=== PATIENT | female | born 1965 | race Caucasian/White ===

== ENCOUNTER 2025-06-11 17:37 | Emergency (ER) | payer BC, SELFPAY ==
[2025-06-11 17:40] VITALS: BP 159/99; PULSE 69; RESP 18; O2SAT 97
--- OUTSIDE RECORDS SUMMARY | 2025-06-11 17:44 | XMS_ITS | Encounter Summary ---
Author Organization [facility] Address [address] [place] [address] Care Team Providers Care Surveillance Director Name Role Phone Janessa Dent MD Primary Care Provider +1- [phone] Encounter Details Date Type Department Care Team (Late st Contact Info) Description 05/11/2025 Results Follow-Up [facility] Primary Care Ezequ[place] Silverio [address] [address] [place] [address] [facility] [address] [place] [address] [address] CORONARY CALCIUM SCORE Social History Tobacco Use Types Packs/Day Years Used Date Smoking Tobacco: Never Passive Smoke Exposure: Never Smokeless Tobacco: Never Alcohol Use Standard Drinks/Week Comments Yes 1 (1 standard drink = 0.6 oz pur e alcohol) Comments No Sex and Gender Information Value Date Recorded Sex Assigned at Not on file Legal Sex Female 2:40 PM CDT Gender Identity Not on file Sexual Orientation Not on file documented as of this encounter Plan of Treatment Upcoming Encounters Date Type Department Care Team (Latest Contact Info) Description 06/30/2025 7:00 AM CDT Hospital Encounter [facility] [address] [place] [address] Jerald Shelton MD [address] [place] [address] Screen for colon cancer 06/30/2025 7:00 AM CDT - 06/30/2025 7:30 AM CDT Surgery [facility] [address] [place] [phone] Jerald Shelton MD [address] [place] [address] COLONOSCOPY Scheduled Procedures Name Priority Associated Diagnoses Date/Ti me COLONOSCOPY Screen for colon cancer History of colon cancer 06/30/2025 7:00 AM CDT documented as of this encounter Goals Goal Patient Goal Type Associated Problems Recent Progress Patient-Stated? Author Autogenera mariangel Goal Care Plan Autogenerated Problem No Marisela Vargas, CHAINSTITCH SEAT JOINER documented as of this encounter Visit Diagnoses Not on filedocumented in this encounter Additional Health Concerns Active Problems Noted Date Diagnosed Date Autogenerated Problem 04/18/2025 documented as of this encounter Care Teams Surveillance Director Relationship Specialty Start Date End Date Janessa Dent MD PCP - General Internal Medicine 04/11/15 documented as of this encounter
--- OUTSIDE RECORDS SUMMARY | 2025-06-11 17:44 | XMS_ITS | Encounter Summary ---
Author Organization [facility] Address [address] [place] [address] Care Team Providers Care Waiter/Waitress Counter Name Role Phone Janessa Dent MD Primary Care Provider +1- [phone] Reason for Visit * Reason Onset Date Comments Urinary Pain 06/06/2022 Encounter Details Date Type Department Care Team (Late st Contact Info) Description 06/06/2022 Telephone [facility] Internal Medicine [address] [address] [place] [id number] [place] [address] Urinary Pain Social History Tobacco Use Types Packs/Day Years Used Date Smoking Tobacco: Never Smokeless Tobacco: Never Alcohol Use Standard Drinks/Week Comments Yes 1 (1 standard drink = 0.6 oz pur e alcohol) Comments No Sex and Gender Information Value Date Recorded Sex Assigned at Not on file Legal Sex Female 2:40 PM CDT Gender Identity Not on file Sexual Orientation Not on file documented as of this encounter Miscellaneous Notes * Telephone Encounter - Janessa Dent MD - 06/06/2022 10:36 AM CDT Keflex sent to pharmacy * Telephone Encounter - Anthony Feliciano - 06/06/2022 9:38 AM CDT Urinary Problem or recent delivery / surgery / ? No Painful or difficulty urinating? Yes. Blood in urine? No Urinary frequency? Yes Urgency? Yes Lower back or Flank pain? No Fever: Temp 99-100.9 Chills: No Abnormal vaginal discharge or bleeding: No Nausea, vomiting, diarrhea? Yes History of recurrent urinary tract infections? Yes Date of Last UTI: 05/10 Medication used? sulfamethoxazole/trimethoprim Not able to schedule appointment within the recommended timeframe. Caller has been advised that their Primary Care team will be contacting them regarding their clinical concern. Caller also advised to call back: in 48 hours if they have not received contact at any time if the condition worsens or they develop new symptoms they are concerned about.UTI documented in this encounter Plan of Treatment Upcoming Encounters Date Type Department Care Team (Latest Contact Info) Description 06/30/2025 7:00 AM CDT Hospital Encounter [facility] [address] [place] [address] Jerald Shelton MD [address] [place] [address] Screen for colon cancer 06/30/2025 7:00 AM CDT - 06/30/2025 7:30 AM CDT Surgery [facility] [address] [place] [address] Jerald Shelton MD [address] [place] [phone] COLONOSCOPY Scheduled Procedures Name Priority Associated Diagnoses Date/Ti me COLONOSCOPY Screen for colon cancer History of colon cancer 06/30/2025 7:00 AM CDT documented as of this encounter Visit Diagnoses Not on filedocumented in this encounter Care Teams Waiter/Waitress Counter Relationship Specialty Start Date End Date Janessa Dent MD PCP - General Internal Medicine 04/11/15 documented as of this encounter
--- OUTSIDE RECORDS SUMMARY | 2025-06-11 17:44 | XMS_ITS | Clinical Summary ---
Author Organization [facility] Address [address] [place] [address] Phone Care Team Providers Care Missionary Coordinator Name Role Phone Janessa Dent MD Primary Care Provider +1- [phone] Allergies Active Allergy Reactions Criticality Noted Date Comments Adhesive Tape-Silicones Other (See Comments) blisters Morphine Hives High 01/22/2019 Medications multivitamin (DAILY-NUZHAT) tablet Take 1 Tablet by mouth daily. Active ibuprofen (MOTRIN) 800 mg tablet Take 1 Tablet (800 mg) by mouth every 8 hours as needed for Pain, Mild. 30 Tablet 1 7 Active naproxen (NAPROSYN) 500 mg tablet Take 1 Tablet (500 mg) by mouth every 12 hours as needed for Pain, Moderate. 20 Tablet 9 Active sulfamethoxazo le-trimethopri m (BACTRIM DS) 800-160 mg tabletIndicati ons:Acute cystitis without hematuria Take 1 Tablet by mouth 2 times daily. 14 Tablet 5 Active peg 3350-electroly calvin (COLYTE) 240-22.72-6.72 -5.84 gram solution Take 4,000 mL by mouth one time only for 1 dose. Follow prescribing physician's instructions ONLY. These were sent by mail or email. 4000 mL 5 06/08/20 25 Active Problems Problem Noted Date Diagnosed Date Hyperlipidemia 02/10/2019 History of recurrent UTIs 04/11/2015 Encounters Date Type Department Care Team Description 05/11/2025 Results Follow-Up [facility] Care [place] Silverio [address] [facility] [address] [place] [phone] CORONARY CALCIUM SCORE 05/10/2025 4:09 PM CDT - 05/10/2025 11:59 PM CDT Hospital Encounter [facility] Imaging Services [address] [place] [phone] Estefania Romeo NP Discharge Disposition: Home or Self Care 04/05/2025 External Device Data STL ABSTRACTION Provider, Abstract from Last 3 Months Immunizations Immunization Administration Dates Next Due (SHINGRIX)(50 YRS UP) ZOSTER VACCINE RECOMBINANT, 0.5 ML, IM 04/04/2021 Family History Medical History Relation Name Comments Cancer Father kidney Heart Disease Father High Cholesterol Father Colon Cancer Maternal Grandfather Diabetes Mother Heart Disease Mother High Cholesterol Mother Colon Cancer Paternal Grandmother Breast Cancer Neg Hx Relation Name Status Comments Father Maternal Grandfather Mother Paternal Grandmother Social History Tobacco Use Types Packs/Day Years Used Date Smoking Tobacco: Never Passive Smoke Exposure: Never Smokeless Tobacco: Never Tobacco Cessation:Counseling Given: Not Answered Alcohol Use Standard Drinks/Week Comments Yes 1 (1 standard drink = 0.6 oz pur e alcohol) occ Comments No Sex and Gender Information Value Date Recorded Sex Assigned at Not on file Legal Sex Female 2:40 PM CDT Gender Identity Not on file Sexual Orientation Not on file Last Filed Vital Signs Vital Sign Reading Time Taken Comments Blood Pressure 110/70 01/26/2025 1:38 PM CDT Pulse 76 01/26/2025 1:38 PM CDT Temperature 36.9 C (98.5 F) 11/14/2024 2:14 PM CDT Respiratory Rate 16 11/14/2024 2:14 PM CDT Oxygen Saturation 97% 01/26/2025 1:38 PM CDT Inhaled Oxygen Concentration - - Weight 72.6 kg (160 lb) 06/08/2025 10:26 AM CDT Height 170.2 cm (5' 7 ) 06/08/2025 10:26 AM CDT Body Mass Index 25.06 06/08/2025 10:26 AM CDT Plan of Treatment Upcoming Encounters Date Type Department Care Team (Latest Contact Info) Description 06/30/2025 7:00 AM CDT Hospital Encounter [facility] [address] [place] [phone] Jerald Shelton MD [address] [place] [address] Screen for colon cancer 06/30/2025 7:00 AM CDT - 06/30/2025 7:30 AM CDT Surgery [facility] [address] [place] [phone] Jerald Shelton MD [address] [place] [address] COLONOSCOPY Scheduled Procedures Name Priority Associated Diagnoses Date/Ti me COLONOSCOPY Screen for colon cancer History of colon cancer 06/30/2025 7:00 AM CDT Health Maintenance Due Date Last Done Comments Pre-Diabetes and Diabetes Screening 1965 DTAP/TDAP/TD VACCINES (1 - Tdap) 12/10/1982 HPV/Cotest (21-29) 12/10/1984 CERVICAL CANCER SCREENING 12/10/1993 HPV/Cotest (30-65) 12/10/1993 PAP SMEAR 12/10/1993 FIT-DNA Q 3 years 12/10/2008 FIT/FOBT Q 1 year 12/10/2008 Flex Sig/CT Colonography Q 5 years 12/10/2008 ZOSTER VACCINE (2 of 2) 05/30/2021 04/04/2021 Preventative Visit- Commercial 09/01/2024 0 02/10/2019, 12/22/2017, 04/11/2015 INFLUENZA VACCINE (#1) 2025 COLORECTAL SCREENING 06/30/2025 06/30/2015 Colorectal Cancer Screening 06/30/2025 BREAST CANCER SCREENING 07/14/2025 07/14/20 24, 08/16/2022, 02/23/2019, Additional history exists RSV VACCINE (60+ or ) (1 - 1-dose 75+ series) 12/10/2038 Goals Goal Patient Goal Type Associated Problems Recent Progress Patient-Stated? Author Nelson august Goal Care Plan Autogenerated Problem No SamMarisela powell, BUSINESS MAIL ENTRY CLERK Procedures Procedure Name Priority Date/Time Associated Diagnosis Comments CT CORONARY CALCIUM SCORE Routine 05/10/2025 4:31 PM CDT Hyperlipidemia, unspecified hyperlipidemia type MAMMO 3D ASMITA SCREEN IMPL BILAT W OR WO CAD Routine 07/14/2024 1:23 PM ACTUARIAL SCIENCE PROFESSOR Screening mammogram for breast cancer from Last 3 Months or Most Recently Relevant to Health Maintenance Results * CT CORONARY CALCIUM SCORE (05/10/2025 4:31 PM CDT) 05/10/2025 4:31 PM CDT Addenda Addendum by Vincent Khan MD on 05/11/2025 7:59 AM CDT The LAD score is 18. Impressions INTERFACE SYSTEM - 05/10/2025 4:38 PM CDT IMPRESSION: 1. Calcium score: 18, consistent with a mildly increased risk for future cardiac events. DICTATION LOCATION: [address] Narrative INTERFACE SYSTEM - 05/10/2025 4:38 PM CDT EXAMINATION: CT CARDIAC SCORING - Coronary Artery Calcium (CAC) Score DATE: 05/10/2025 4:31 PM HISTORY: Atherosclerotic cardiovascular disease (ASCVD) risk stratification COMPARISON: No prior study is available for comparison at the time of this dictation. PROCEDURE: A standard prospective cardiac-gated CAC scoring protocol. CAC scan was interpreted using the Agatston's Scoring formula. An age/sex/race-adjusted score percentile was derived by comparison of the score with Multi-Ethnic Study of Atherosclerosis (CARLSON) reference population. The examination was performed with the adjustment of mA according to the patient size and/or the use of Iterative Reconstruction Technique. FINDINGS: Great vessels (diameter): Ascending aorta: 3.7 cm Descending aorta: 2.4 cm Main pulmonary artery: 2.2 cm Pericardium: Normal. Extra-coronary calcification: Aortic valve: Minimal calcification. Thoracic aorta: No calcification. Mitral annulus: No calcification. Other findings: None. Total Agatston CAC Score: 18 Left main: 0 LAD: 0 LCx: 0 RCA/PDA: 0 CAC-DRS Category: A1/N1 A = Agatston scoring; N = Number of vessels The regional distribution/total CACS does not warrant further evaluation. CAC-DRS: Coronary Artery Calcium Data and Reporting System. An expert consensus Document of the Society of Cardiovascular Computed Tomography (SCCT). J Cardiovasc Comp Asael; 12 (2018):185-191. Score: 0 Agatston's Score: 0 Plaque burden: No identifiable atherosclerotic plaque. Risk: Very low. Probability of significant CAD: Very unlikely. Score: 1 Agatston's Score: 1-99 Plaque burden: Mild identifiable plaque. Risk: Mildly increased. Probability of significant CAD: Mild or minimal coronary stenosis likely. Score: 2 Agatston's Score: 100-299 Plaque burden: Moderate identifiable plaque. Risk: Moderately increased. Probability of significant CAD: Moderate likelihood of significant stenosis. Score: 3 Agatston's Score: > 300 Plaque burden: Extensive plaque burden. Risk: Severely increased Probability of significant CAD: High likelihood. Procedure Note Vincent Khan MD - 05/10/2025 EXAMINATION: CT CARDIAC SCORING - Coronary Artery Calcium (CAC) Score DATE: 05/10/2025 4:31 PM HISTORY: Atherosclerotic cardiovascular disease (ASCVD) risk stratification COMPARISON: No prior study is available for comparison at the time of this dictation. PROCEDURE: A standard prospective cardiac-gated CAC scoring protocol. CAC scan was interpreted using the Agatston's Scoring formula. An age/sex/race-adjusted score percentile was derived by comparison of the score with Multi-Ethnic Study of Atherosclerosis (CARLSON) reference population. The examination was performed with the adjustment of mA according to the patient size and/or the use of Iterative Reconstruction Technique. FINDINGS: Great vessels (diameter): Ascending aorta: 3.7 cm Descending aorta: 2.4 cm Main pulmonary artery: 2.2 cm Pericardium: Normal. Extra-coronary calcification: Aortic valve: Minimal calcification. Thoracic aorta: No calcification. Mitral annulus: No calcification. Other findings: None. Total Agatston CAC Score: 18 Left main: 0 LAD: 0 LCx: 0 RCA/PDA: 0 CAC-DRS Category: A1/N1 A = Agatston scoring; N = Number of vessels The regional distribution/total CACS does not warrant further evaluation. CAC-DRS: Coronary Artery Calcium Data and Reporting System. An expert consensus Document of the Society of Cardiovascular Computed Tomography (SCCT). J Cardiovasc Comp Asael; 12 (2018):185-191. Score: 0 Agatston's Score: 0 Plaque burden: No identifiable atherosclerotic plaque. Risk: Very low. Probability of significant CAD: Very unlikely. Score: 1 Agatston's Score: 1-99 Plaque burden: Mild identifiable plaque. Risk: Mildly increased. Probability of significant CAD: Mild or minimal coronary stenosis likely. Score: 2 Agatston's Score: 100-299 Plaque burden: Moderate identifiable plaque. Risk: Moderately increased. Probability of significant CAD: Moderate likelihood of significant stenosis. Score: 3 Agatston's Score: > 300 Plaque burden: Extensive plaque burden. Risk: Severely increased Probability of significant CAD: High likelihood. IMPRESSION: 1. Calcium score: 18, consistent with a mildly increased risk for future cardiac events. DICTATION LOCATION: [address] [place] Estefania Romeo NP CT ORDERABLES Edited Result - Final INTERFACE SYSTEM Refer to clinic/hospital department * MAMMO 3D ASMITA SCREEN IMPL BILAT W OR WO CAD (07/14/2024 1:23 PM ACTUARIAL SCIENCE PROFESSOR) Anatomical Region Laterality Modality Breast Bilateral Mammography 07/14/2024 1:23 PM ACTUARIAL SCIENCE PROFESSOR Impressions 07/14/2024 2:55 PM ACTUARIAL SCIENCE PROFESSOR IMPRESSION: No suspicious findings to suggest malignancy in either breast. Annual mammography is recommended. OVERALL FINAL ASSESSMENT: BI-RADS CATEGORY 1 - Negative. DICTATION LOCATION: [facility] Narrative 07/14/2024 2:55 PM ACTUARIAL SCIENCE PROFESSOR BILATERAL SCREENING DIGITAL IMPLANT MAMMOGRAM WITH 3D TOMOSYNTHESIS AND CAD DATE: 07/14/2024 1:23 PM HISTORY: Routine screening. TECHNIQUE: Full-field digital standard and implant displaced craniocaudal and mediolateral oblique projections of both breasts were obtained. Low-dose full-field digital breast tomosynthesis examination was performed with 2D and 3D acquisitions. Examination is read in conjunction with computer aided detection. COMPARISON: 2021 and older BREAST COMPOSITION: There are scattered areas of fibroglandular density. FINDINGS: There are bilateral subglandular silicone implants, which limit mammographic sensitivity. No suspicious mass, suspicious microcalcifications, or architectural distortion is identified in either breast. Computer aided detection was used in the interpretation of this examination. Procedure Note Conner Sawyer MD - 07/14/2024 BILATERAL SCREENING DIGITAL IMPLANT MAMMOGRAM WITH 3D TOMOSYNTHESIS AND CAD DATE: 07/14/2024 1:23 PM HISTORY: Routine screening. TECHNIQUE: Full-field digital standard and implant displaced craniocaudal and mediolateral oblique projections of both breasts were obtained. Low-dose full-field digital breast tomosynthesis examination was performed with 2D and 3D acquisitions. Examination is read in conjunction with computer aided detection. COMPARISON: 2021 and older BREAST COMPOSITION: There are scattered areas of fibroglandular density. FINDINGS: There are bilateral subglandular silicone implants, which limit mammographic sensitivity. No suspicious mass, suspicious microcalcifications, or architectural distortion is identified in either breast. Computer aided detection was used in the interpretation of this examination. IMPRESSION: No suspicious findings to suggest malignancy in either breast. Annual mammography is recommended. OVERALL FINAL ASSESSMENT: BI-RADS CATEGORY 1 - Negative. DICTATION LOCATION: [facility] Estefania Romeo NP MAMMO ORDERABLES Final Result from Last 3 Months or Most Recently Relevant to Health Maintenance Additional Health Concerns Active Problems Noted Date Diagnosed Date Autogenerated Problem 04/18/2025 Insurance [facility] [place] [address] [id number] [facility] Phone [employer], Part of [employer] CHOICE RX [facility] [employer] Advance Directives For more information, please contact: [phone] * Full Code (Latest Code Status on File) Date Activated Date Inactivated Comments 06/30/2015 10:41 AM 06/30/2015 2:15 PM Care Teams Missionary Coordinator Relationship Specialty Start Date End Date Janessa Dent MD PCP - General Internal Medicine 04/11/15
--- OUTSIDE RECORDS SUMMARY | 2025-06-11 17:44 | XMS_ITS | Encounter Summary ---
Author Organization [facility] Address [address] [place] [address] Care Team Providers Care Table Tender Sludge Name Role Phone Janessa Dent MD Primary Care Provider +1- [phone] Encounter Details Date Type Department Care Team (Late st Contact Info) Description 03/21/2017 Chart Note [facility] [address] Silver[address] [place] [phone] Fran Feldman Physical Therapist NO ADDRESS ON FILE Social History Tobacco Use Types Packs/Day Years [...] on file documented as of this encounter Progress Notes * Fran Feldman Physical Therapist - 03/21/2017 6:56 AM CDT Images from the original note were not included. PHYSICAL THERAPY DISCHARGE SUMMARY Patient Name: CANDY Harrison Date of : 1965 Today's Date: 03/21/2017 [facility]#: [id number] Diagnosis: Left knee effusion This patient was seen from February 04, 2017 to February 07, 2017 for a total of 2 visits. This patient did not return for further therapy visits following the last session noted above, therefore a complete re-evaluation of status was not completed. Please refer to the note dated February 04, 2017 for last measurements taken. Objective Measurements: See note of February 04, 2017 Date and Last Pain Ratin/10 on February 07, 2017 Pain Location: Left knee Home Exercise Program Last Updated: February 04, 2017 Goals Achieved: no The patient is being discharged from therapy secondary to patient did not return to therapy. Please contact me if you have any questions. Thank you for this referral. Fran Feldman, Physical Therapist documented in this encounter Plan of Treatment Upcoming Encounters Date Type Department Care Team (Latest Contact Info) Description 06/30/2025 7:00 AM CDT Hospital Encounter [facility] [address] [place] [address] Jerald Shelton MD [address] [place] [phone] Screen for colon cancer 06/30/2025 7:00 AM CDT - 06/30/2025 7:30 AM CDT Surgery [facility] [address] [place] [address] Jerald Shelton MD [address] [place] [phone] COLONOSCOPY Scheduled Procedures Name Priority Associated Diagnoses Date/Ti me COLONOSCOPY Screen for colon cancer History of colon cancer 06/30/2025 7:00 AM CDT documented as of this encounter Visit Diagnoses Not on filedocumented in this encounter Additional Health Concerns Infection Onset Date Last Indicated Resolved Time R/O COVID-19 09/05/2020 09/05/2020 09/08/2020 2:16 AM MATTRESS FILLER documented as of this encounter Care Teams Table Tender Sludge Relationship Specialty Start Date End Date Janessa Dent MD PCP - General Internal Medicine 04/11/15 documented as of this encounter
--- NOTE | 2025-06-11 17:47 | XRR_ITS ---
PROCEDURE INFORMATION: Exam: XR Left Hand Exam date and time: 06/11/2025 5:49 PM Age: 59 years old Clinical indication: Injury or trauma; Other: Nail in lt hand; Puncture; Left; Additional info: Nail through hand TECHNIQUE: Imaging protocol: Radiologic exam of the left hand. Views: 3 or more views. COMPARISON: No relevant prior studies available. FINDINGS: Bones/joints: See Soft tissues finding. Soft tissues: Nail traverses the space between the 3rd and 4th metacarpals, without definitive evidence of underlying fracture. XR/XR hand LT min 3V* [id number] IMPRESSION: Nail traverses the space between the 3rd and 4th metacarpals, without definitive evidence of underlying fracture.
--- NOTE | 2025-06-11 17:51 | ED_ITS ---
Documented by User: [email or web address] Monique 06/11/25 18:52 HPI - Skin/Abscess/Foreign Bdy General: Chief complaint: Skin/Abscess/Foreign Body Stated complaint: Lt Hand impalement inj (Nail) Time Seen by Provider: 06/11/25 17:40 Source: patient Mode of arrival: ambulatory Limitations: no limitations History of Present Illness: Patient is a 59-year-old female who presents to the emergency department with nail impaled to her left hand. She was using a nail gun, when her hand slipped and shot through her palm, is a through and through injury where entry is to the palmar aspect and exits towards the ulnar aspect of the dorsum of the hand. She has intact movement and sensation, no coolness or paralysis of the extremity. Moderate pain noted at this time. Tetanus not up-to-date. No active bleeding. Nail is still in place. Is not on any blood thinners. MD complaint: foreign body (Nail to left hand) Onset (ago): minute(s) Tetanus up to date: no Location: L hand Associated symptoms: Deny chills, fever(s), nausea or vomiting Related Data Previous Rx's ?Medication ?Instructions ?Recorded amoxicillin 875 mg-potassium 1 tab PO BID 7 days #14 t abs 06/11/25 clavulanate 125 mg tablet Allergies Allergy/AdvReac Type Severity Reaction Status Date / Time adhesive tape Allergy Unknown Verified 06/11/25 17:49 morphine Allergy Unknown Verified 06/11/25 17:49 Review of Systems General: Reports: 10 or more systems reviewed and unremarkable except in HPI and below Const: Denies: fever(s) or chills Card: Denies: chest pain Resp: Denies: dyspnea GI: Denies: abdominal pain, nausea, vomiting or diarrhea Musc: Reports: extremity pain (Left hand); Denies: joint pain Skin/Breast: Reports: skin pain, skin tenderness and other (Foreign body left hand); Denies: rash Neuro: Denies: headache(s), numbness in extremities or weakness in extremities Physical Exam Const: COMMON NORMALS: no acute distress, average body habitus, patient orient ed x3, no limitations, healthy appearing, alert and well nourished HENMT: COMMON NORMALS: normocephalic and atraumatic HEAD & SCALP: normocephalic and atraumatic Neck/C-Spine: COMMON NORMALS: full ROM, no lymphadenopathy, supple and no meningeal signs Extremity: COMMON NORMALS: full ROM and capillary refill normal NARRATIVE EXTREMITY EXAM: Impaled nail to left hand no active bleeding. Distal neurovascular status is intact. Full range of motion and strength within the left digits. No pallor or paralysis. Neuro: COMMON NORMALS: patient oriented x3 SENSORIUM/ORIENTATION: Yes alert MENINGEAL SIGNS: Yes no meningeal signs Procedures Foreign Body Removal Site: left and hand Description of foreign body: other (nail) Technique: manual removal and removal with forceps Confirmed by:: direct visualization Complications: none Post-procedure exam: awake, alert Neurovascular: normal distal pulse, normal capillary fill, distal light touch sensation intact, distal motor function normal, no signs of compartment syndrome and no change from pre-procedure Course Vital Signs: Vital signs: Vital Signs Pulse Rate 73 06/11/25 18:49 Respiratory Rate 16 06/11/25 18:49 Blood Pressure 126/79 06/11/25 18:49 Pulse Oximetry 95 06/11/25 18:49 Oxygen Delivery Me thod Room Air 06/11/25 17:40 MDM - Skin/Abscess/Foreign Bdy Medicial Decision Making Patient presented after shooting nail through her left palm with a nail gun. Neurovascular exam was unremarkable, appears that this is soft tissue and did not interfere with bones or any significant muscle or tendons. The nail was removed after local anesthesia with lidocaine and Betadine prep, without complication. Post removal neurovascular status also intact. It is cleansed thoroughly, and sterile dressing applied. IV Ancef is given and pain controlled with fentanyl here in the ED. The x-ray did not demonstrate any associated fractures. She will be started on Augmentin, and she is thoroughly instructed on how to keep the wound cleaned and specific symptoms to watch for are discussed. Lab Data Radiology Impressions Hand X-Ray 06/11/25 17:47 IMPRESSION: Nail traverses the space between the 3rd and 4th metacarpals, without definitive evidence of underlying fracture. XR interpretation done by ED provider, pending radiology final review ED provider radiology interpretation(s): X-ray left hand showing no fracture. Foreign body present. Discharge Plan Discharge Patient Disposition: Home Clinical Impression: Injury of left hand by nail gun Qualifiers: Encounter type: initial encounter Qualified Code(s): S69.92XA - Unspecified injury of left wrist, hand and finger(s), initial encounter Condition: Stable Prescriptions: New amoxicillin-pot clavulanate 875-125 mg tablet 1 tab PO BID 7 Days Qty: 14 0RF Discharge Orders: Discharge ED (Routine); Ordered 06/11/25 Ordered By: Rivera Villar Patient Instructions: Patient Portal & Gerardo Instructions Activity Restrictions/Additional Instructions: Hand Puncture Discharge Wound Care Instructions After Nail Injury You had a nail removed from your left hand in the emergency department. Your tetanus shot is up to date, and you will be taking amoxicillin-clavulanate (Augmentin) twice daily for one week as prescribed. How to Care for Your Wound at Home: - Keep the wound covered with the sterile dressing provided. Change the dressing once daily or if it becomes wet or dirty. Wash your hands before and after changing the dressing. - Clean the wound gently once a day: Remove the old dressing, rinse the wound with clean tap water, and pat dry with a clean towel. You do not need to use special antiseptics; tap water is safe and effective for cleaning wounds. - Apply a new sterile dressing after cleaning. Occlusive dressings (such as film or hydrogel) help wounds heal better than dry dressings. Do not use antibiotic ointments unless instructed by your doctor. - Keep the wound dry except during cleaning. You may shower, but avoid soaking the hand in water (such as in a bath or sink). Medication: - Take amoxicillin-clavulanate (Augmentin) as prescribed, twice daily for one week. Finish the entire course, even if you feel better. Watch for Signs of Infection or Complications: Return to the emergency department or contact your doctor immediately if you notice any of the following: - Increasing redness, swelling, or warmth around the wound - Pus or foul-smelling drainage - Fever over 100.4?F (38?C) - Severe pain not controlled by [id number] pain medicine - Numbness, tingling, or inability to move your fingers - Red streaks spreading up your arm - Bleeding that does not stop after applying pressure for 10 minutes Other Instructions: - Avoid heavy use of the injured hand until cleared by your doctor. - If you have diabetes, immune system problems, or other health concerns, monitor the wound closely and follow up as directed. Follow-Up: Schedule a follow-up appointment as directed by your healthcare provider. If you have any questions or concerns, do not hesitate to contact your healthcare team. Print Language: Russian Coding Level of Care Code ED Life Assurance Representative for [facility] Documented by User: Nick Anderson, 06/11/25 20:43 HPI - Skin/Abscess/Foreign Bdy General: Chief complaint: Skin/Abscess/Foreign Body Stated complaint: Lt Hand impalement inj (Nail) Time Seen by Provider: 06/11/25 17:40 Related Data Previous Rx's ?Medication ?Instructions ?Recorded amoxicillin 875 mg-potassium 1 tab PO BID 7 days #14 t abs 06/11/25 clavulanate 125 mg tablet Allergies Allergy/AdvReac Type Severity Reaction Status Date / Time adhesive tape Allergy Unknown Verified 06/11/25 17:49 morphine Allergy Unknown Verified 06/11/25 17:49 Course Vital Signs: Vital signs: Vital Signs Pulse Rate 73 06/11/25 18:49 Respiratory Rate 16 06/11/25 18:49 Blood Pressure 126/79 06/11/25 18:49 Pulse Oximetry 95 06/11/25 18:49 Oxygen Delivery Me thod Room Air 06/11/25 17:40 MDM - Skin/Abscess/Foreign Bdy Medicial Decision Making Patient presented after shooting nail through her left palm with a nail gun. Neurovascular exam was unremarkable, appears that this is soft tissue and did not interfere with bones or any significant muscle or tendons. The nail was removed after local anesthesia with lidocaine and Betadine prep, without complication. Post removal neurovascular status also intact. It is cleansed thoroughly, and sterile dressing applied. IV Ancef is given and pain controlled with fentanyl here in the ED. The x-ray did not demonstrate any associated fractures. She will be started on Augmentin, and she is thoroughly instructed on how to keep the wound cleaned and specific symptoms to watch for are discussed. Patient originally seen by Mr. Jian PA-C, agree with his history, evaluation, and management. Lab Data Radiology Impressions Hand X-Ray 06/11/25 17:47 IMPRESSION: Nail traverses the space between the 3rd and 4th metacarpals, without definitive evidence of underlying fracture. Discharge Plan Discharge Patient Disposition: Home Clinical Impression: Injury of left hand by nail gun Qualifiers: Encounter type: initial encounter Qualified Code(s): S69.92XA - Unspecified injury of left wrist, hand and finger(s), initial encounter Condition: Stable Prescriptions: New amoxicillin-pot clavulanate 875-125 mg tablet 1 tab PO BID 7 Days Qty: 14 0RF Discharge Orders: Discharge ED (Routine); Ordered 06/11/25 Ordered By: Rivera Villar Patient Instructions: Patient Portal & Gerardo Instructions Activity Restrictions/Additional Instructions: Hand Puncture Discharge Wound Care Instructions After Nail Injury You had a nail removed from your left hand in the emergency department. Your tetanus shot is up to date, and you will be taking amoxicillin-clavulanate (Augmentin) twice daily for one week as prescribed. How to Care for Your Wound at Home: - Keep the wound covered with the sterile dressing provided. Change the dressing once daily or if it becomes wet or dirty. Wash your hands before and after changing the dressing. - Clean the wound gently once a day: Remove the old dressing, rinse the wound with clean tap water, and pat dry with a clean towel. You do not need to use special antiseptics; tap water is safe and effective for cleaning wounds. - Apply a new sterile dressing after cleaning. Occlusive dressings (such as film or hydrogel) help wounds heal better than dry dressings. Do not use antibiotic ointments unless instructed by your doctor. - Keep the wound dry except during cleaning. You may shower, but avoid soaking the hand in water (such as in a bath or sink). Medication: - Take amoxicillin-clavulanate (Augmentin) as prescribed, twice daily for one week. Finish the entire course, even if you feel better. Watch for Signs of Infection or Complications: Return to the emergency department or contact your doctor immediately if you notice any of the following: - Increasing redness, swelling, or warmth around the wound - Pus or foul-smelling drainage - Fever over 100.4?F (38?C) - Severe pain not controlled by [id number] pain medicine - Numbness, tingling, or inability to move your fingers - Red streaks spreading up your arm - Bleeding that does not stop after applying pressure for 10 minutes Other Instructions: - Avoid heavy use of the injured hand until cleared by your doctor. - If you have diabetes, immune system problems, or other health concerns, monitor the wound closely and follow up as directed. Follow-Up: Schedule a follow-up appointment as directed by your healthcare provider. If you have any questions or concerns, do not hesitate to contact your healthcare team. Print Language: Russian Coding Level of Care Code ED Life Assurance Representative for [employer] Lara
[2025-06-11] MEDS: tetanus-dipt-pertussis 0.5 mL SDV IM (18:18)
[2025-06-11] MEDS: ceFAZolin 1,000 mg SDV 1000 MG IVP (18:18)
[2025-06-11] MEDS: fentaNYL 50 mcg/mL INJ 2mL 100 MCG IVP (18:18)
[2025-06-11] MEDS: lidocaine-epi 2% 20 mL INJ INJECTION (18:25)
[2025-06-11 18:49] VITALS: BP 126/79; PULSE 73; RESP 16; O2SAT 95
== END 2025-06-11 18:54 | disposition home or self-care (01) ==
PROVIDERS: Emergency Provider Physician Assistant
DX: S61.442A Puncture wound with foreign body of left hand, initial encounter (principal); W29.4XXA Contact with nail gun, initial encounter
CPT/HCPCS: 73130; 90715; 96374; 96375; 99284; 99291; J0690; J3010; J9999